=== PATIENT | female | born 1995 | race Caucasian/White ===

== ENCOUNTER 2021-06-11 09:13 | Emergency (ER) | payer BC ==
[~2021-06-11] VITALS: Ht 157.5 cm; Wt 77.1 kg
[2021-06-11 09:30] VITALS: BP_SYST 126
--- NOTE | 2021-06-11 09:41 | NUR ---
ER at bedside examining patient.
[2021-06-11] MEDS ORDERED: LORazepam 1 MG TABLET PO ONE (09:45)
--- NOTE | 2021-06-11 09:49 | NUR ---
radiology at bedside
--- NOTE | 2021-06-11 09:50 | NUR ---
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
--- NOTE | 2021-06-11 10:06 | NUR ---
O2 sat 96% on RA
--- NOTE | 2021-06-11 10:11 | NUR ---
VSS pt. cont. to have feeling of "tightness in chest" O2 sat 97% on RA, RR 18
--- NOTE | 2021-06-11 10:46 | NUR ---
Pt. feels much better post ativan
[2021-06-11] MEDS ORDERED: LORA-258 PO (10:48)
[2021-06-11] MEDS ORDERED: NAPR-688 PO (10:48)
--- NOTE | 2021-06-11 11:01 | NUR ---
Patient given written and verbal discharge instructions and verbalizes understanding. Dr. Dong discussed with patient the results and treatment provided. Patient in stable condition. ID arm band removed. Rx of ativan and naproxen given. Patient educated on pain management and to follow up with PMD. Pain Scale 0. Opportunity for questions provided and answered. Medication side effect fact sheet provided.
[2021-06-11 11:02] VITALS: BP_SYST 105
== END 2021-06-11 11:02 | disposition home or self-care (01) ==
LOC: SED 09:13
DX: R07.89 Other chest pain (principal); Z79.899 Other long term (current) drug therapy
CPT/HCPCS: 71045; 81025; 93005; 99283